=== PATIENT | female | born 1955 | race Caucasian/White ===

== ENCOUNTER → 2016-10-03 | Outpatient (CLI) | payer OTHER ==
--- NOTE | 2016-10-04 10:20 | REP ---
Right ankle series: Four views. History: Injury to right ankle. Findings: Ankle mortise is intact. There is anterolateral soft tissue swelling. Lateral view suggestive of a joint effusion. There is Achilles and plantar calcaneal spurring. Mild tibiotalar spurring is seen on the lateral radiograph as well. Impression: Lateral soft tissue swelling and probable joint effusion. Mild tibiotalar spurring. No fracture seen. Heel spurs. Signed by Cyril Guerrero MD 10/04/2016 02:32 P
== END ==
LOC: M WUC 13:59
PROVIDERS: ATTEND Physician Assistant
DX: M25.471 Effusion, right ankle (principal); M77.31 Calcaneal spur, right foot; M25.771 Osteophyte, right ankle

== ENCOUNTER → 2021-10-28 | Outpatient (CLI) | payer MEDICARE, OTHER ==
[2021-10-28 07:45] LABS: BASO # 0.1 10^3/uL (0.0-0.2); BASO % 0.9 % (0.0-1.0); EOS # 0.2 10^3/uL (0.0-0.5); EOS % 2.5 % (0.0-3.0); HEMATOCRIT 47.8 % (36.0-47.0); HEMOGLOBIN 15.7 g/dl (12.0-15.5); LYMPH # 2.4 10^3/uL (1.5-5.0); LYMPH % 29.4 % (24.0-44.0); MEAN CORPUSCULAR HGB CONC 32.8 g/dl (32.0-36.5); MEAN CORPUSCULAR VOLUME 91.2 fl (80.0-96.0); MONO # 0.8 10^3/uL (0.0-0.8); MONO % 9.2 % (2.0-8.0); NEUTROPHILS # 4.7 10^3/uL (1.5-8.5); NEUTROPHILS % 57.9 % (36.0-66.0); PLATELET COUNT, AUTOMATED 275 10^3/uL (150-450); RED BLOOD COUNT 5.24 10^6/uL (4.00-5.40); WHITE BLOOD COUNT 8.2 10^3/uL (4.0-10.0)
[2021-10-28 08:24] LABS: ALBUMIN 3.3 GM/DL (3.2-5.2); BLOOD UREA NITROGEN 12 MG/DL (7-18); CALCIUM LEVEL 8.7 MG/DL (8.8-10.2); CARBON DIOXIDE LEVEL 28 MEQ/L (21-32); CHLORIDE LEVEL 109 MEQ/L (98-107); CHOLESTEROL LEVEL 131 MG/DL (<200); CHOLESTEROL RISK RATIO 2.673 (<5); CREATININE FOR GFR 0.72 MG/DL (0.55-1.30); FERRITIN 72 NG/ML (8-252); FREE THYROXINE INDEX 2.6 % (1.3-4.8); GLOMERULAR FILTRATION RATE > 60.0 (>45); GLUCOSE, FASTING 107 MG/DL (70-100); HDL CHOLESTEROL 49 MG/DL (>40); IRON (FE) 59 UG/DL (50-170); LDL CHOLESTEROL 64 MG/DL (<100); NON-HDL-C 82 MG/DL; PERCENT SATURATION 9.8 % (13.2-45.0); PHOSPHORUS LEVEL 3.5 MG/DL (2.5-4.9); POTASSIUM SERUM 4.5 MEQ/L (3.5-5.1); SODIUM LEVEL 140 MEQ/L (136-145); T UPTAKE 32 % (30-39); THYROXINE (T4) 8.1 UG/DL (4.5-12.0); TOTAL IRON BINDING CAPACITY 601 UG/DL (250-450); TRIGLYCERIDES LEVEL 88 MG/DL (<150)
[2021-10-28 10:01] LABS: VITAMIN B12 LEVEL 417 PG/ML (247-911)
== END ==
LOC: M LAB 07:02
PROVIDERS: ATTEND Physician Assistant
DX: I10 Essential (primary) hypertension (principal); R63.5 Abnormal weight gain; E78.5 Hyperlipidemia, unspecified; R53.83 Other fatigue; J44.9 Chronic obstructive pulmonary disease, unspecified; D64.9 Anemia, unspecified

== ENCOUNTER → 2022-01-11 | Outpatient (CLI) | payer MEDICARE, OTHER | LOC: M WHC 07:20 | PROVIDERS: ATTEND Physician Assistant | DX: Z12.31 Encounter for screening mammogram for malignant neoplasm of breast (principal); N63.20 Unspecified lump in the left breast, unspecified quadrant; R92.1 Mammographic calcification found on diagnostic imaging of breast | CPT/HCPCS: 76642; 77066; G0279 ==

== ENCOUNTER → 2022-07-06 | Outpatient (CLI) | payer MEDICARE, OTHER ==
[2022-07-06 08:37] LABS: HEMOGLOBIN 15.7 g/dl (12.0-15.5); MEAN CORPUSCULAR HEMOGLOBIN 29.6 pg (27.0-33.0); MEAN CORPUSCULAR VOLUME 92.3 fl (80.0-96.0); PLATELET COUNT, AUTOMATED 250 10^3/uL (150-450); RED BLOOD COUNT 5.31 10^6/uL (4.00-5.40); WHITE BLOOD COUNT 7.9 10^3/uL (4.0-10.0)
[2022-07-06 11:16] LABS: BLOOD UREA NITROGEN 16 MG/DL (7-18); CREATININE FOR GFR 0.72 MG/DL (0.55-1.30); GLOMERULAR FILTRATION RATE > 60.0 (>45); GLUCOSE, FASTING 111 MG/DL (70-100); POTASSIUM SERUM 4.3 MEQ/L (3.5-5.1); SODIUM LEVEL 141 MEQ/L (136-145)
[2022-07-06 11:17] LABS: CALCIUM LEVEL 8.8 MG/DL (8.8-10.2); CARBON DIOXIDE LEVEL 26 mmol/L (20-29); CHLORIDE LEVEL 108 MEQ/L (98-107); CHOLESTEROL LEVEL 139 MG/DL (<200); CHOLESTEROL RISK RATIO 2.895 (<5); HDL CHOLESTEROL 48 MG/DL (>40); LDL CHOLESTEROL 65.2 MG/DL (<100); NON-HDL-C 91 MG/DL; PHOSPHORUS LEVEL 3.4 MG/DL (2.5-4.9); TRIGLYCERIDES LEVEL 129 MG/DL (<150)
[2022-07-06 12:53] LABS: ALBUMIN 3.4 GM/DL (3.2-5.2); TOTAL 25(OH) VITAMIN D 23.3 NG/ML (30.0-100.0)
== END ==
LOC: M LAB 07:22
PROVIDERS: ATTEND Physician Assistant
DX: I10 Essential (primary) hypertension (principal); E78.5 Hyperlipidemia, unspecified; E55.9 Vitamin D deficiency, unspecified

== ENCOUNTER → 2024-01-02 | Outpatient (CLI) | payer MEDICARE, OTHER | LOC: M WHC 08:35 | PROVIDERS: ATTEND Nurse Practitioner Adult Health | DX: Z12.31 Encounter for screening mammogram for malignant neoplasm of breast (principal); M80.00XA Age-related osteoporosis with current pathological fracture, unspecified site, initial encounter for fracture; R92.323 Mammographic fibroglandular density, bilateral breasts; N60.01 Solitary cyst of right breast; N60.02 Solitary cyst of left breast ==

== ENCOUNTER → 2024-02-15 | Outpatient (CLI) | payer MEDICARE, OTHER | LOC: M WUC 09:00 | PROVIDERS: ATTEND Nurse Practitioner Family | DX: M79.645 Pain in left finger(s) (principal) ==